=== PATIENT | female | born 1935 | race Caucasian/White ===

== ENCOUNTER 2016-05-15 20:24 | Emergency (ER) | payer SELFPAY ==
[~2016-05-15] VITALS: Ht 167.6 cm; Wt 72.5 kg
[2016-05-15 20:28] VITALS: Ht 167.6 cm; Wt 72.5 kg
== END 2016-05-15 22:54 | disposition left against medical advice (07) ==
LOC: E/R 20:24
DX: Z53.21 Procedure and treatment not carried out due to patient leaving prior to being seen by health care provider (principal)